=== PATIENT | female | born 1945 | race Caucasian/White ===

== ENCOUNTER 2017-03-02 17:58 | Observation (INO) | payer MEDICARE ==
[~2017-03-02] VITALS: Ht 162.6 cm; Wt 95.0 kg
[~2017-03-02 17:58] MED LIST: ASPI325T PO; BUSP10 PO; DIOV40TA PO; ENOX40P SQ; HYDR-2768 PO; HYDR-3129 PO; LANS30 PO; POLY119S PO; PROZ20CA11 PO; ROPI1TAB72 PO; Z.0.COMMODE-3:1; Z.0.CPM; Z.0.WALKERFRONT
--- NOTE | 2017-03-02 19:06 | PD ---
HPI Chief Complaint: leg pain Time Seen by Provider: 19:06 Travel History International Travel<30 days: No Contact w/Intl Traveler<30days: No History of Present Illness HPI 71 YO F presents with PMH of depression and HTN to the ED via EMS for evaluation of right hamstring and buttocks pain. The patient states that she was attempting to help someone, slid in the rain and fell to the right buttock. She sates that she "did a split." She has not been weight bearing since the accident. States the pain is bearable unless she attempts to straighten the leg , declines pain medications at this time. Endorses previous TKA of the same leg. PFSH Past Medical History Arthritis: Yes Blood Disorders: No Anxiety: Yes Depression: Yes Heart Rhythm Problems: No Cancer: No Cardiovascular Problems: Yes High Cholesterol: No Chest Pain: No Congestive Heart Failure: No Cerebrovascular Accident: No Diminished Hearing: No Endocrine: No Gastrointestinal Disorders: Yes GERD: Yes Genitourinary: No Hepatitis: No Hiatal Hernia: No Hypertension: Yes Immune Disorder: No Musculoskeletal: Yes Neurologic: Yes (PAST HXMIGRAINES) Psychiatric: Yes (ANXIETY/DEPRESSION) Reproductive: No Respiratory: No Migraines: Yes Past Surgical History Abdominal Surgery: Yes (CHOLY) AICD: No Body Medical Devices: RT KNEE Cardiac Surgery: No Cholecystectomy: Yes Ear Surgery: No Endocrine Surgery: Yes Eye Surgery: No Genitourinary Surgery: Yes (CYSTOCLE AND RECTOCLE REPAIRS) Gynecologic Surgery: Yes Hysterectomy: Yes Joint Replacement: Yes (TKR) Oral Surgery: Yes (TONSILLECTOMY) Pacemaker: No Thoracic Surgery: Yes (RIGHT AND LEFT LUMPHECTOMIES) Tonsillectomy: Yes Other Surgery: Yes (BILATERAL BREAST LUMPECTOMY) Social History Alcohol Use: Yes (SOCIAL) Tobacco Use: Yes (1/2 PPD) Substance Use: No Allergies-Medications (Allergen,Severity, Reaction): Coded Allergies: Amoxicillin (Verified Allergy, Severe, HIVES, 10/20/15) Hydrocodone (Verified Allergy, Intermediate, 03/02/17) Penicillin (Unverified Allergy, Intermediate, Hives, 10/20/15) Reported Meds & Prescriptions Reported Meds & Active Scripts Active [place]burn 10/325 (Hydrocodone-Acetaminophen 10/325) 1 Tab Tab 1-2 Tab PO Q4HR PRN Walker Front Wheel (Walkerfront) Device 1 Unit Cpm Machine (Cpm) Device 1 Unit Commode-3:1 Device 1 Unit Aspirin 325 mg (Aspirin) 325 Mg Tab 325 Mg PO DAILY Start Aspirin after Lovenox is completed. Lovenox (Enoxaparin Sodium) 40 Mg/0.4 Ml Inj 40 Mg SQ DAILY UNGRADUATED PREFILLED SYRINGE Start Aspirin after Lovenox is completed. Reported Miralax 119 Gm Bottle (Polyethylene Glycol) 119 Gm Powd 17 Gm PO DAILY PRN 17 GRAMS = 1 TABLESPOON DISSOLVED IN 4 TO 8 OUNCES OF BEVERAGE Prozac (Fluoxetine HCl) 20 Mg Cap 40 Mg PO DAILY Buspar 10 mg Tab (Buspirone HCl) 10 Mg Tab 20 Mg PO Q8 Requip 1 mg (Ropinirole HCl) 1 Mg Tab 1 Tab PO BID Hctz (Hydrochlorothiazide) 25 Mg Tab 25 Mg PO DAILY Lansoprazole 30 Mg Cap 30 Mg PO BID Diovan (Valsartan) Unknown Strength Tab 160 Mg PO DAILY Review of Systems Except as stated in HPI: all other systems reviewed are Neg Physical Exam Exam Limitations: Other: (exam performed in the ambulance call, limited due to patient privacy issues.) Narrative GENERAL: Well-nourished, well-developed white female in no acute distress. SKIN: Focused skin assessment warm/dry. HEAD: Normocephalic. EYES: No scleral icterus. No injection or drainage. NECK: Supple, trachea midline. No JVD or lymphadenopathy. CARDIOVASCULAR: Regular rate and rhythm without murmurs, gallops, or rubs. RESPIRATORY: Breath sounds equal bilaterally. No accessory muscle use. GASTROINTESTINAL: Abdomen soft, non-tender, nondistended. MUSCULOSKELETAL: No cyanosis, or edema. Focused right lower extremity exam: 2+ DP pulse. No TTP of the lateral aspect of the hip, no internal rotation or shortening noted. Patient is holding the hip and knee in flexion. BACK: Nontender without obvious deformity. No CVA tenderness. MDM Medical Decision Making Medical Screen Exam Complete: Yes Emergency Medical Condition: Yes Differential Diagnosis muscle strain versus hamstring tear versus contusion versus ligamentous injury versus fracture versus other Narrative Course 71 YO F presents with PMH of depression and HTN to the ED via EMS for evaluation of right hamstring and buttocks pain. The patient states that she was attempting to help someone, slid in the rain and fell to the right buttock. She sates that she "did a split." She has not been weight bearing since the accident. Endorses previous TKA of the same leg. States the pain is bearable unless she attempts to straighten the leg, declines pain medications at this time. Vital stable en route per EMS. On physical exam the patient is holding the leg in hip and knee flexion. No tenderness to palpation of the lateral aspect of the thigh or popliteal tenderness. 2+ DP pulse noted. No internal rotation or foreshortening noted. Attempted range of motion elicits pain. Patient is awaiting bed placement. Please see oncoming provider notes for disposition. Sofi Goldman Mar 02, 2017 19:06
[2017-03-02 20:47] VITALS: BP 150/65; PULSE 69; RESP 14; TEMP 98.2; O2SAT 98
[2017-03-02] MEDS ORDERED: MAPA25TA PO (21:11)
[2017-03-02] MEDS ORDERED: POLY119P PO (21:11)
[2017-03-02] MEDS ORDERED: VALS1TAB65 PO (21:11)
[2017-03-02] MEDS ORDERED: BUSP10TA PO (21:11)
[2017-03-02] MEDS ORDERED: MAGN400T24 PO (21:11)
[2017-03-02] MEDS ORDERED: POLY17PO3 PO (21:11)
[2017-03-02] MEDS ORDERED: MULT1TAB61 PO (21:11)
[2017-03-02] MEDS ORDERED: [UNRECOGNIZED DRUG - CODE] PO (21:15)
[2017-03-02] MEDS ORDERED: PREV30CA11 PO (21:18)
[2017-03-02] MEDS ORDERED: FIBER SMART PO (21:18)
[2017-03-02] MEDS ORDERED: ROPI1TAB72 PO (21:18)
[2017-03-02] MEDS ORDERED: HYDR25TA5 PO (21:18)
[2017-03-02] MEDS ORDERED: FLUO40CA PO (21:18)
--- NOTE | 2017-03-02 21:22 | PD ---
HPI Chief Complaint: Fall Time Seen by Provider: 20:35 Travel History International Travel<30 days: No Contact w/Intl Traveler<30days: No Traveled to known affect area: No History of Present Illness HPI This 71-year-old woman who slipped in the rain and did a complete split. She has pain on the medial side of her hip. She was unable to walk initially. It took about an hour to get up and move. She has pain whenever she engages the right hip muscles. Denied her head. She otherwise has felt generally well. She otherwise has been feeling generally well and healthy. History Past Medical History Narrative Medical GERD Hypertension Depression Tetanus Vaccination: Unknown Influenza Vaccination: Yes Social History Alcohol Use: Yes (1 drink per a day) Tobacco Use: Yes (3/4 PPD) Allergies-Medications (Allergen,Severity, Reaction): Coded Allergies: Amoxicillin (Verified Allergy, Severe, HIVES, 03/02/17) Hydrocodone (Verified Allergy, Intermediate, 03/02/17) Penicillin (Unverified Allergy, Intermediate, Hives, 03/02/17) Reported Meds & Prescriptions Reported Meds & Active Scripts Active Reported Fluoxetine (Fluoxetine HCl) 40 Mg Cap 40 Cap PO DAILY Hydrochlorothiazide 25 Mg Tab 25 Mg PO DAILY Prevacid (Lansoprazole) 30 Mg Capdr 30 Mg PO BID Requip (Ropinirole) 1 Mg Tab 1 Mg PO BID [Fiber Smart] 5 Ml PO DAILY Miralax (Polyethylene Glycol 3350) 17 Gm Powd.pack 17 Gm PO DAILY PRN Magnesium (Magnesium Oxide) 400 Mg Tablet 400 Mg PO DAILY Centrum Silver Women Tablet (Multivit-Min/Iron/Folic/Lutein) 1 Each Tablet 1 Tab PO DAILY Mapap Pm (Diphenhydramine-Acetaminophen) 25-500 Mg Tab 2 Tab PO HS PRN Valsartan 160 Mg Tab 160 Mg PO DAILY Buspirone (Buspirone HCl) 10 Mg Tab 20 Mg PO TID Review of Systems Except as stated in HPI: all other systems reviewed are Neg Physical Exam Narrative GENERAL: Well-appearing 71-year-old woman, no acute distress. SKIN: Focused skin assessment warm/dry. HEAD: Atraumatic. Normocephalic. CARDIOVASCULAR: Regular rate and rhythm. No murmur appreciated. RESPIRATORY: No accessory muscle use. Clear to auscultation. Breath sounds equal bilaterally. GASTROINTESTINAL: Abdomen soft, non-tender, nondistended. Hepatic and splenic margins not palpable. MUSCULOSKELETAL: No obvious deformities. Right knee is normal. No pain with range of motion. She has no pain with passive range of motion of the right hip. On direct testing she has most pain elicited with abduction against resistance with severe pain. NEUROLOGICAL: Awake and alert. No obvious cranial nerve deficits. Motor grossly within normal limits. Normal speech. Data Data Last Documented VS Vital Signs Date Time Temp Pulse Resp B/P Pulse Ox O2 Delivery O2 Flow Rate FiO2 03/02/17 20:47 98 Room Air 03/02/17 20:47 98.2 69 14 150/[address] Pelvis W/O Iv Contrast (03/02/17 ) [facility] Medical Decision Making Medical Screen Exam Complete: Yes Emergency Medical Condition: Yes Interpretation(s) CT pelvis: Negative Differential Diagnosis Adductor muscle strain or tear, avulsion, fracture, other Narrative Course Medical decision making INITIAL: 71-year-old woman presents to the emergency department complaining of severe hip pain after slipping in doing a split. She likely has an abductor muscle tear or strain versus an avulsion. Fracture less likely. We'll check CT of the pelvis to rule out any kind of subtle fracture. We'll discuss with orthopedics how to best manage this. FINAL: 71-year-old woman with likely severe groin strain. Unable to walk because of severe pain anytime she abducts the hip. She does not have much pain at all when just lying there. I spoke with Dr. Tinoco, on-call for orthopedics, states she'll probably a pain for another week or 2 but other than pain control is not much to do. Patient lives in a mobile home, she has several stairs to get in the home, she lives alone. She'll likely need a wheelchair, we'll have to pivot transfer on her left leg. I think she is high risk for falling again. I spoke with the on-call [facility] physician. I recommend observation overnight, physical therapy evaluation, and repeat assessment. Diagnosis Primary Impression: Groin strain Additional Impressions: Gait instability Johnathon Morales MD Mar 02, 2017 21:21
[2017-03-02 21:35] VITALS: BP 154/68; PULSE 72; RESP 12; O2SAT 100
--- NOTE | 2017-03-02 21:45 | RADRPT ---
EXAM DATE/TIME: 03/02/2017 21:12 [place] COMPARISON: No previous studies available for comparison. INDICATIONS : Patient fell, complains of pelvic pain. ORAL CONTRAST: No oral contrast ingested. RADIATION DOSE: 24.48 CTDIvol (mGy) MEDICAL HISTORY : Hypertension. SURGICAL HISTORY : Hysterectomy. ENCOUNTER: Initial ACUITY: 1 day PAIN SCALE: 8/10 LOCATION: pelvis TECHNIQUE: Volumetric scanning of the pelvis was performed. Using automated exposure control and adjustment of the mA and/or kV according to patient size, radiation dose was kept as low as reasonably achievable t o obtain optimal diagnostic quality images. FINDINGS: BOWEL/MESENTERY: Numerous colonic diverticula. No evidence of acute diverticulitis. No bowel dilatation. No free air o r free fluid. BLADDER: There is no wall thickening or mass. RETROPERITONEUM: There is no aneurysm or lymphadenopathy. REPRODUCTIVE: Within normal limits. INGUINAL: There is no lymphadenopathy or hernia. MUSCULOSKELETAL: No evidence of fracture. Prominent degenerative findings of the lower lumbar spine. CONCLUSION: No acute findings in the pelvis. No evidence of fracture. Santino Quiroga MD on March 02, 2017 at 21:38 Board Certified Radiologist. This report was verified electronically.
[2017-03-02 22:46] VITALS: BP 144/66; PULSE 70; RESP 12; O2SAT 99
[2017-03-02 23:15] LABS: AUTOMATED NEUTROPHIL # 4.6 TH/MM3 (1.8-7.7); BASOPHIL # 0.1 TH/MM3 (0-0.2); BASOPHIL % 0.7 % (0.0-2.0); EOSINOPHIL # 0.2 TH/MM3 (0-0.4); EOSINOPHIL % 2.4 % (0.0-4.0); HEMATOCRIT 37.9 % (35.0-46.0); HEMO FLAGS DIFF FINAL; LYMPH % 28.7 % (9.0-44.0); LYMPHOCYTE # 2.2 TH/MM3 (1.0-4.8); MEAN CORPUSCULAR HGB CONC 33.7 % (32.0-36.0); MONO % 8.9 % (0.0-8.0); NEUT % 59.3 % (16.0-70.0); PLATELET COUNT 317 TH/MM3 (150-450); RED BLOOD COUNT 4.27 MIL/MM3 (4.00-5.30); RED CELL DISTRIBUTION WIDTH 14.8 % (11.6-17.2); WHITE BLOOD COUNT 7.8 TH/MM3 (4.0-11.0)
--- NOTE | 2017-03-02 23:36 | HHI.HP ---
HPI Service [facility] Hospitalists Primary Care Physician Adam Purdy MD Admission Diagnosis hip adductor muscle strain, gait problems Chief Complaint: fall with rt hip ,leg pain inability to ambulate Travel History International Travel<30 Days: No Contact w/Intl Traveler <30 Da: No Traveled to Known Affected Are: No History of Present Illness 71 y/o w female with history depression hypertension,dvt 3 years ago,was attempting to help neighbor and slipped in the rain ,sis a split with inability to ambulate . Fell on right buttocks ,CT scan pelvis was unremarkable most likely severe groin strain. Unable to walk because of severe pain anytime she abducts the hip. She does not have much pain at all when just lying there. ER spoke with Dr. Tinoco, on-call for orthopedics, states she'll probably a pain for another week or 2 but other than pain control is not much to do. Patient lives in a mobile home, she has several stairs to get in the home, she lives alone. She'll likely need a wheelchair, we'll have to pivot transfer on her left leg. She is high risk for falling again. I will obsere overnight, physical therapy evaluation, and repeat assessment. Review of Systems Musculoskeletal: COMPLAINS OF: Joint pain, Back pain Past Family Social History Past Medical History anxiety,depression,hypertension,GERD,RLS Past Surgical History gallbladder,rt knee,cystocele,rectocele,hysterectomy,tonsil,bilateral lymph node surgery and breast lumpectomy Reported Medications buspar 20 tid,requip1 bid,hctz25,lansoprazazole 30 bid,diovan 160 miralax Allergies: Coded Allergies: Amoxicillin (Verified Allergy, Severe, HIVES, 03/02/17) Hydrocodone (Verified Allergy, Intermediate, 03/02/17) Penicillin (Unverified Allergy, Intermediate, Hives, 03/02/17) Social History social etoh,smokes 1/2 ppd Physical Exam Vital Signs Vital Signs Date Time Temp Pulse Resp B/P Pulse Ox O2 Delivery O2 Flow Rate FiO2 03/02/17 22:46 70 12 144/66 99 Room Air 03/02/17 21:35 72 12 154/68 100 Room Air 03/02/17 20:47 98 Room Air 03/02/17 20:47 98.2 69 14 150/65 98 Room Air Physical Exam GENERAL: This is a well-nourished, well-developed patient, in no apparent distress. SKIN: No rashes, ecchymoses or lesions. Cool and dry. HEAD: Atraumatic. Normocephalic. No temporal or scalp tenderness. EYES: Pupils equal round and reactive. Extraocular motions intact. No scleral icterus. No injection or drainage. ENT: Nose without bleeding, purulent drainage or septal hematoma. Throat without erythema, tonsillar hypertrophy or exudate. Uvula midline. Airway patent. NECK: Trachea midline. No JVD or lymphadenopathy. Supple, nontender, no meningeal signs. CARDIOVASCULAR: Regular rate and rhythm without murmurs, gallops, or rubs. RESPIRATORY: Clear to auscultation. Breath sounds equal bilaterally. No wheezes , rales, or rhonchi. GASTROINTESTINAL: Abdomen soft, non-tender, nondistended. No hepato-splenomegaly , or palpable masses. No guarding. MUSCULOSKELETAL: Extremities without clubbing, cyanosis, or edema. Pain on any movement rt side no pain if remains still. NEUROLOGICAL: Awake and alert. Cranial nerves II through XII intact. Motor and sensory grossly within normal limits. Five out of 5 muscle strength in all muscle groups. Normal speech. Laboratory Laboratory Tests Test 03/02/17 02:51 White Blood Count 7.8 Red Blood Count 4.27 Hemoglobin 12.8 Hematocrit 37.9 Mean Corpuscular Volume 89.0 Mean Corpuscular Hemoglobin 30.0 Mean Corpuscular Hemoglobin 33.7 Concent Red Cell Distribution Width 14.8 Platelet Count 317 Mean Platelet Volume 8.9 Neutrophils (%) (Auto) 59.3 Lymphocytes (%) (Auto) 28.7 Monocytes (%) (Auto) 8.9 Eosinophils (%) (Auto) 2.4 Basophils (%) (Auto) 0.7 Neutrophils # (Auto) 4.6 Lymphocytes # (Auto) 2.2 Monocytes # (Auto) 0.7 Eosinophils # (Auto) 0.2 Basophils # (Auto) 0.1 CBC Comment DIFF FINAL Differential Comment Result Diagram: 03/02/17 0251 Imaging Last [address] 03/02/17 0000 Signed Impressions: Service Date/Time: Thursday, March 02, 2017 21:12 - CONCLUSION: No acute findings in the pelvis. No evidence of fracture. Santino Quiroga MD Assessment and Plan Problem List: (1) Fall Status: Acute Plan: plan obtain PT evaluation no evidence fracture on CT (2) Groin strain Status: Acute Plan: pain meds (3) Gait instability Status: Acute Plan: will get PT evaluation Assessment and Plan as above continue home meds Code Status full Discussed Condition With patient Edd Ignacio MD Mar 02, 2017 23:36
[2017-03-02 23:41] LABS: BICARBONATE 24.1 MEQ/L (21.0-32.0); POTASSIUM 3.9 MEQ/L (3.5-5.1)
[2017-03-02] MEDS ORDERED: NALOXONE HCL 0.4 MG/ML AMP IV PRN (23:45)
[2017-03-02] MEDS ORDERED: SODIUM CHLORIDE 0.9% FLUSH 10 ML FLUSH IV FLUSH PRN (23:45)
[2017-03-02] MEDS ORDERED: POLYETHYLENE GLYCOL 17 GM PKG PO PRN (23:45)
[2017-03-02] MEDS ORDERED: SENNOSIDES 8.6 MG TAB PO PRN (23:45)
[2017-03-02] MEDS ORDERED: LACTULOSE SYRUP 20 GM/30 ML CUP PO PRN (23:45)
[2017-03-02] MEDS ORDERED: BISACODYL 10 MG SUPP RECTAL PRN (23:45)
[2017-03-02] MEDS ORDERED: MAGNESIUM HYDROXIDE SUSP 30 ML CUP PO PRN (23:45)
[2017-03-02] MEDS ORDERED: ONDANSETRON HCL 4 MG/2 ML VIAL IVP PRN (23:45)
[2017-03-03] VITALS (9 sets, daily range): BP systolic 94–138; BP diastolic 53–68; PULSE 66–85; RESP 12–20; TEMP 97.9–98.5; O2SAT 94–100
[2017-03-03] MEDS: HYDROmorphone HCL PF 1 MG/ML VIAL IV PRN ×4 (00:01→20:40)
[2017-03-03] MEDS ORDERED: ACETAMINOPHEN 325 MG TAB PO ONE (08:00)
[2017-03-03] MEDS: FLUoxetine HCL 20 MG CAP PO SCH (08:31)
[2017-03-03] MEDS: ENOXAPARIN SODIUM 40 MG/0.4 ML SYRINGE SQ SCH (08:31)
[2017-03-03] MEDS: busPIRone HCL 10 MG TAB PO SCH ×3 (08:32→18:29)
[2017-03-03] MEDS: MAGNESIUM OXIDE 400 MG TAB PO SCH (08:32)
[2017-03-03] MEDS: DOCUSATE SODIUM 50 MG/SENNA 8.6 MG TAB PO SCH ×2 (08:32→19:55)
[2017-03-03] MEDS: SODIUM CHLORIDE 0.9% FLUSH 10 ML FLUSH IV FLUSH SCH ×2 (08:32→19:55)
[2017-03-03] MEDS: VALSARTAN 160 MG TAB PO SCH (08:32)
[2017-03-03] MEDS: PANTOPRAZOLE SOD 40 MG DELAYED RELEASE TAB PO SCH ×2 (08:32→19:55)
[2017-03-03] MEDS: HYDROCHLOROTHIAZIDE 25 MG TAB PO SCH (08:32)
[2017-03-03] MEDS: MULTIVITAMINS/MINERALS THERAPEUTIC TAB PO SCH (08:32)
[2017-03-03] MEDS ORDERED: FIBER SMART PO SCH (09:00)
[2017-03-03] MEDS ORDERED: methylPREDNISolone SOD SUCC 125 MG/2 ML VIAL IV PUSH ONE (14:30)
--- NOTE | 2017-03-03 16:24 | HHI.PR ---
Objective Vitals Vital Signs Date Time Temp Pulse Resp B/P Pulse Ox O2 Delivery O2 Flow Rate FiO2 03/03/17 16:09 97.9 68 18 122/68 96 03/03/17 12:08 97.9 77 18 120/57 96 03/03/17 08:41 97.9 69 20 130/64 97 03/03/17 05:50 71 131/63 03/03/17 03:29 98.1 66 18 94/53 96 03/03/17 01:18 98.2 66 18 132/61 97 03/03/17 00:14 66 12 138/64 100 Room Air 03/02/17 22:46 70 12 144/66 99 Room Air 03/02/17 21:35 72 12 154/68 100 Room Air 03/02/17 20:47 98 Room Air 03/02/17 20:47 98.2 69 14 150/65 98 Room Air Result Diagram: 03/02/17 0251 03/02/17 0251 Imaging Last [address] 03/02/17 0000 Signed Impressions: Service Date/Time: Thursday, March 02, 2017 21:12 - CONCLUSION: No acute findings in the pelvis. No evidence of fracture. MD Agustin Wasserman Richard L MD Mar 03, 2017 16:24
[2017-03-04 04:04] VITALS: BP 126/59; PULSE 71; RESP 17; TEMP 97.9; O2SAT 95
[2017-03-04 07:25] VITALS: BP 128/64; PULSE 75; RESP 18; TEMP 97.6; O2SAT 94
[2017-03-04] MEDS: busPIRone HCL 10 MG TAB PO SCH (07:48)
[2017-03-04] MEDS: MAGNESIUM OXIDE 400 MG TAB PO SCH (07:49)
[2017-03-04] MEDS: DOCUSATE SODIUM 50 MG/SENNA 8.6 MG TAB PO SCH (07:49)
[2017-03-04] MEDS: MULTIVITAMINS/MINERALS THERAPEUTIC TAB PO SCH (07:49)
[2017-03-04] MEDS: PANTOPRAZOLE SOD 40 MG DELAYED RELEASE TAB PO SCH (07:49)
[2017-03-04] MEDS: VALSARTAN 160 MG TAB PO SCH (07:49)
[2017-03-04] MEDS: FLUoxetine HCL 20 MG CAP PO SCH (07:49)
[2017-03-04] MEDS: HYDROCHLOROTHIAZIDE 25 MG TAB PO SCH (07:49)
[2017-03-04] MEDS: SODIUM CHLORIDE 0.9% FLUSH 10 ML FLUSH IV FLUSH SCH (07:51)
[2017-03-04] MEDS: ENOXAPARIN SODIUM 40 MG/0.4 ML SYRINGE SQ SCH (07:51)
[2017-03-04] MEDS ORDERED: methylPREDNISolone SOD SUCC 125 MG/2 ML VIAL IV PUSH ONE (08:00)
[2017-03-04] MEDS ORDERED: OXYC-392 PO (10:38)
--- NOTE | 2017-03-04 10:41 | HHI.DCPOC ---
Discharge Care Plan Diagnosis: (1) Fall (2) Groin strain Goals to Promote Your Health * To prevent worsening of your condition and complications * To maintain your health at the optimal level Directions to Meet Your Goals Take your medications as prescribed Follow your dietary instruction Follow activity as directed Keep your appointments as scheduled Take your immunizations and boosters as scheduled If your symptoms worsen call your PCP, if no PCP go to Urgent Care Center or Emergency Room Smoking is Dangerous to Your Health. Avoid second hand smoke Call the 24-hour hour crisis hotline for domestic abuse at Jovon Velez MD Mar 04, 2017 10:41
--- NOTE | 2017-03-04 10:44 | HHI.FF ---
Face to Face Verification Diagnosis: (1) Fall (2) Groin strain Physical Therapy Order: Evaluate and Treat, Improve ambulation Home Health Nursing Order: Signs/symptoms of disease process Nursing assessment with vital signs I have seen patient Chloe Guerra on 03/04/17. My clinical findings support the need for the requested home health care services because: High risk of falls I certify that my clinical findings support that this patient is homebound because: Unsteady gait/balance Jovon Velez MD Mar 04, 2017 10:44
[2017-03-04] MEDS ORDERED: POLYETHYLENE GLYCOL 17 GM PKG PO ONE (10:45)
--- NOTE | 2017-03-04 10:45 | HHI.PR ---
Objective Vitals Vital Signs Date Time Temp Pulse Resp B/P Pulse Ox O2 Delivery O2 Flow Rate FiO2 03/04/17 08:55 18 03/04/17 07:25 97.6 75 18 128/64 94 03/04/17 04:04 97.9 71 17 126/59 95 03/03/17 23:59 98.2 71 18 111/56 94 03/03/17 19:47 98.5 85 20 117/62 94 03/03/17 16:09 97.9 68 18 122/68 96 03/03/17 12:08 97.9 77 18 120/57 96 03/03/17 03/03/17 03/04/17 15:00 23:00 07:00 # Voids 3 Result Diagram: 03/02/17 0251 03/02/17 0251 Imaging Last [address] 03/02/17 0000 Signed Impressions: Service Date/Time: Thursday, March 02, 2017 21:12 - CONCLUSION: No acute findings in the pelvis. No evidence of fracture. MD Agustin Wasserman Richard L MD Mar 04, 2017 10:45
[2017-03-04 12:00] VITALS: BP 105/55; PULSE 64; RESP 16; TEMP 98.2; O2SAT 93
[2017-03-04 12:42] VITALS: RESP 18
== END 2017-03-04 14:44 | disposition home or self-care (01) ==
LOC: NEPC 17:58 → NEDA 22:32 → NEPGCP 03-03 01:17
PROVIDERS: ADMIT Hospitalist; ATTEND Hospitalist
DX: S76.211A Strain of adductor muscle, fascia and tendon of right thigh, initial encounter (principal); M79.661 Pain in right lower leg; M54.9 Dorsalgia, unspecified; K21.9 Gastro-esophageal reflux disease without esophagitis; I10 Essential (primary) hypertension; G43.909 Migraine, unspecified, not intractable, without status migrainosus; G25.81 Restless legs syndrome; F17.210 Nicotine dependence, cigarettes, uncomplicated; M19.90 Unspecified osteoarthritis, unspecified site; Z86.718 Personal history of other venous thrombosis and embolism; W01.0XXA Fall on same level from slipping, tripping and stumbling without subsequent striking against object, initial encounter; Y93.89 Activity, other specified
CPT/HCPCS: 72192; 80048; 85025; 97162; 99285; G0378; G8987; G8988; J1170; J1650; J2930